=== PATIENT | male | born 1970 | race Caucasian/White ===

== ENCOUNTER 2017-07-03 08:15 | Inpatient (IN) | payer OTHER ==
[~2017-07-03 08:15] MED LIST: Lactated Ringers 1,000 ML IV SCH; Lidocaine 1%/Sod Bicarbonate in NS 8.4% 1 ML Syringe PRN; Sodium Chloride 0.9% 10 ML Syringe FLUSH PRN
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
[2017-07-03] MEDS ORDERED: Propofol 200 MG/20 ML SDV ONE (10:04)
[2017-07-03] MEDS ORDERED: Morphine PF 10 MG/10 ML SDV ONE (10:05)
[2017-07-03] MEDS ORDERED: Midazolam 1 MG/ML 2 ML SDV ONE (10:05)
[2017-07-03] MEDS ORDERED: fentaNYL 100 MCG/2 ML SDV ONE (10:05)
[2017-07-03] MEDS ORDERED: ceFAZolin 1 GM Vial ONE (10:11)
[2017-07-03] MEDS: Iodine/Sodium Iodide 2% Tincture 30 ML Bottle ONE ×2 (11:16→11:34)
[2017-07-03] MEDS: ceFAZolin 1 GM Vial ONE ×2 (11:16→11:39)
[2017-07-03] MEDS: Bupivacaine 0.25% 30 ML SDV ONE ×2 (11:17→11:44)
[2017-07-03] MEDS: Morphine 8 MG, EPINEPHrine 0.3 MG, Cefuroxime 750 MG, Ketorolac 30 MG, Sodium Chloride ... ONE ×15 (11:17→20:05)
[2017-07-03] MEDS: Vancomycin 1 GM SDV ONE ×2 (11:18→11:46)
[2017-07-03] MEDS ORDERED: Sennosides 8.6 MG Tab PO PRN (11:30)
[2017-07-03] MEDS ORDERED: Morphine 2 MG/ML Syringe IVPUSH PRN (11:30)
[2017-07-03] MEDS ORDERED: Bisacodyl 5 MG Tab PO PRN (11:30)
[2017-07-03] MEDS ORDERED: Ondansetron 4 MG/2 ML SDV IVPUSH PRN ×2 (11:30→11:59)
[2017-07-03] MEDS ORDERED: Naloxone 0.4 MG/ML SDV IVPUSH PRN (11:30)
[2017-07-03] MEDS ORDERED: Magnesium Hydroxide 400 MG/5 ML Susp 30 ML Cup PO PRN (11:30)
[2017-07-03] MEDS ORDERED: Lactated Ringers 1,000 ML ONE (11:39)
[2017-07-03] MEDS ORDERED: diphenhydrAMINE 50 MG/ML SDV IVPUSH PRN (11:59)
[2017-07-03] MEDS ORDERED: Meperidine PF 50 MG/ML Syringe IVPUSH PRN (11:59)
[2017-07-03] MEDS ORDERED: Ondansetron 4 MG/2 ML SDV ONE (12:08)
--- NOTE | 2017-07-03 12:32 | PCM.POSTAN ---
POST ANESTHESIA ASSESSMENT - MENTAL STATUS Mental Status: Alert, Oriented - VITAL SIGNS Pulse Rate: 76 SaO2: 96 Resp Rate: 11 Blood Pressure: 113/97 Temperature: 36.1 C - RESPIRATORY Respiratory Status: Respiratory Rate WNL, Airway Patent, O2 Saturation Stable, Supplemental Oxygen - CARDIOVASCULAR CV Status: Pulse Rate WNL, Blood Pressure Stable - GASTROINTESTINAL GI Status: No Symptoms - PAIN Pain Score: 0 - POST OP HYDRATION Hydration Status: Adequate & Stable
--- NOTE | 2017-07-03 13:32 | CR ---
Left knee: AP and lateral views of the left knee were obtained. Comparison:. Previous left knee exam of 12/08/09. Knee prosthesis is seen. Components are aligned. Underlying bony structures are intact. No fracture or other abnormality is seen. Impression: 1. Satisfactory radiographic appearance of recently placed left knee prosthesis. Diagnostic code #2
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
[2017-07-03] MEDS: Acetaminophen/oxyCODONE 325-5 MG Tab PO PRN ×2 (16:56→20:12)
[2017-07-03] MEDS: ceFAZolin 2 GM in Premix Bag 1 BAG IV SCH (18:35)
[2017-07-03] MEDS: Famotidine 20 MG Tab PO SCH (20:13)
[2017-07-03] MEDS ORDERED: Docusate Sodium 100 MG Cap PO PRN (21:00)
[2017-07-03] MEDS ORDERED: Simvastatin 10 MG Tab PO SCH (21:00)
[2017-07-04] MEDS: Cyclobenzaprine 10 MG Tab PO PRN ×2 (00:09→10:01)
[2017-07-04] MEDS: Acetaminophen/oxyCODONE 325-5 MG Tab PO PRN ×4 (00:10→13:05)
[2017-07-04] MEDS: ceFAZolin 2 GM in Premix Bag 1 BAG IV SCH ×2 (02:19→11:06)
[2017-07-04] MEDS ORDERED: Multivitamins,Therapeutic Tab PO SCH (07:00)
--- NOTE | 2017-07-04 08:04 | PCM.CONSN ---
- General Info Date of Service: 07/04/17 Admission Dx/Problem (Free Text): Admission Diagnosis/Problem Admission Diagnosis/Problem Osteoarthritis of knee POD #1 s/p Lt TKA with Dr. Ramirez Doing well, VSS, pain controlled, no nausea. Working with PT. Functional Status: Reports: Pain Controlled, Tolerating Diet, Ambulating, Urinating (ben miranda) - Review of Systems General: Reports: No Symptoms HEENT: Reports: No Symptoms Pulmonary: Reports: No Symptoms Cardiovascular: Reports: No Symptoms Gastrointestinal: Reports: No Symptoms Genitourinary: Reports: No Symptoms Musculoskeletal: Reports: Leg Pain Skin: Reports: No Symptoms Neurological: Reports: No Symptoms Psychiatric: Reports: No Symptoms - Patient Data Vitals - Most Recent: Last Vital Signs Temp 99.0 F 07/04/17 03:49 Pulse 76 07/04/17 03:49 Resp 16 07/04/17 06:58 BP 133/84 07/04/17 03:49 Pulse Ox 97 07/04/17 03:49 Weight - Most Recent: 211 lb I&O - Last 24 Hours: Intake & Output 07/03/17 07/04/17 07/04/17 22:59 06:59 14:59 Intake Total 400 1300 Output Total 50 800 Balance 350 500 Lab Results Last 24 Hours: Laboratory Results - last 24 hr 07/04/17 07/04/17 Range/Units 05:45 05:45 WBC 9.62 H (4.23-9.07) K/mm3 RBC 4.47 L (4.63-6.08) M/mm3 Hgb 13.0 L (13.7-17.5) gm/L Hct 38.5 L (40.1-51.0) % MCV 86.1 (79.0-92.2) fl MCH 29.1 (25.7-32.2) pg MCHC 33.8 (32.2-35.5) g/dl RDW Std Deviation 42.1 (35.1-43.9) fL Plt Count 188 (163-337) K/mm3 MPV 10.2 (9.4-12.3) fl Neut % (Auto) 77.4 H (34.0-67.9) % Lymph % (Auto) 12.8 L (21.8-53.1) % [place] % (Auto) 9.3 (5.3-12.2) % Eos % (Auto) 0.2 L (0.8-7.0) Baso % (Auto) 0.1 (0.1-1.2) % Neut # (Auto) 7.45 H (1.78-5.38) K/mm3 Lymph # (Auto) 1.23 L (1.32-3.57) K/mm3 [place] # (Auto) 0.89 H (0.30-0.82) K/mm3 Eos # (Auto) 0.02 L (0.04-0.54) K/mm3 Baso # (Auto) 0.01 (0.01-0.08) K/mm3 Sodium 137 (136-145) mEq/L Potassium 3.5 (3.5-5.1) mEq/L Chloride 101 (98-107) mEq/L Carbon Dioxide 26 (21-32) mEq/L Anion Gap 13.5 (5-15) BUN 11 (7-18) mg/dL Creatinine 0.9 (0.7-1.3) mg/dL Est Cr Clr Drug Dosing 96.91 mL/min Estimated GFR (MDRD) > 60 (>60) mL/min BUN/Creatinine Ratio 12.2 L (14-18) Glucose 129 H (74-106) mg/dL Calcium 8.7 (8.5-10.1) mg/dL Total Bilirubin 0.7 (0.2-1.0) mg/dL AST 20 (15-37) U/L ALT 25 (16-63) U/L Alkaline Phosphatase 83 (46-116) U/L Total Protein 6.4 (6.4-8.2) g/dl Albumin 3.4 (3.4-5.0) g/dl Globulin 3.0 gm/dL Albumin/Globulin Ratio 1.1 (1-2) Med Orders - Current: Current Medications Amlodipine Besylate (Norvasc) 5 mg PO DAILY CHACHA Aspirin (Ecotrin) 325 mg PO BID [facility]HA Bisacodyl (Dulcolax) 5 mg PO DAILY PRN PRN Reason: Constipation Cyclobenzaprine HCl (Flexeril) 10 mg PO TID PRN PRN Reason: Spasms Last Admin: 07/04/17 00:09 Dose: 10 mg Docusate Sodium (Colace) 100 mg PO BID PRN PRN Reason: Constipation Famotidine (Pepcid) 20 mg PO BID [facility] Last Admin: 07/03/17 20:13 Dose: 20 mg Cefazolin Sodium/Dextrose 2 gm (/ Premix) 50 mls @ 100 mls/hr IV Q8H [facility] Stop: 07/04/17 11:29 Last Admin: 07/04/17 02:19 Dose: 100 mls/hr Magnesium Hydroxide (Milk Of Magnesia) 30 ml PO BID PRN PRN Reason: Constipation Morphine Sulfate (Morphine) 2 mg IVPUSH Q2H PRN PRN Reason: Breakthrough Pain Multivitamins (Thera) 1 each PO WITHBREAKFAST [facility] Last Admin: 07/04/17 06:14 Dose: 1 each Ondansetron HCl (Zofran) 4 mg IVPUSH Q6H PRN PRN Reason: Nausea/Vomiting Oxycodone/Acetaminophen (Percocet 325-5 Mg) 1 - 2 tab PO Q4H PRN PRN Reason: Pain Last Admin: 07/04/17 04:59 Dose: 1 tab Senna (Senna) 8.6 mg PO BID PRN PRN Reason: Constipation Simvastatin (Zocor) 10 mg PO BEDTIME [facility] Last Admin: 07/03/17 20:13 Dose: 10 mg Discontinued Medications Bupivacaine HCl (Marcaine 0.25%) Confirm Administered Dose 30 ml .ROUTE .STK- MED ONE Stop: 07/03/17 09:38 Last Admin: 07/03/17 11:44 Dose: 30 ml Cefazolin Sodium (Ancef) Confirm Administered Dose 2 gm .ROUTE .STK-MED ONE Stop: 07/03/17 09:38 Last Admin: 07/03/17 11:39 Dose: 2 gm Cefazolin Sodium (Ancef) Confirm Administered Dose 2 gm .ROUTE .STK-MED ONE Stop: 07/03/17 10:12 Morphine Sulfate 8 mg/Epinephrine HCl 0.3 mg/Cefuroxime Sodium 750 mg/Ketorolac Tromethamine 30 mg/Sodium Chloride 27.9 ml 0 mg .XX ONETIME ONE Stop: 07/03/17 10:31 Last Admin: 07/03/17 20:05 Dose: Not Given Diphenhydramine HCl (Benadryl) 25 mg IVPUSH Q6H PRN PRN Reason: Pruritis Stop: 07/03/17 23:00 Fentanyl (Sublimaze) Confirm Administered Dose 100 mcg .ROUTE .STK-MED ONE Stop: 07/03/17 10:06 Lactated Ringer's (Ringers, Lactated) 1,000 mls @ 125 mls/hr IV ASDIRECTED CHACHA Stop: 07/03/17 23:00 Last Admin: 07/03/17 08:51 Dose: 125 mls/hr Lactated Ringer's (Ringers, Lactated) Confirm Administered Dose 1,000 mls @ as directed .ROUTE .STK-MED ONE Stop: 07/03/17 11:40 Iodine (Iodine 2% Mild Tincture) Confirm Administered Dose 30 ml .ROUTE .STK- MED ONE Stop: 07/03/17 09:38 Last Admin: 07/03/17 11:34 Dose: 18 ml Lidocaine/Sodium Bicarbonate (Buffered Lidocaine 1% In Ns 8.4%) 0.25 ml .XX ONETIME PRN PRN Reason: Prior to IV Start Stop: 07/03/17 13:00 Last Admin: 07/03/17 08:51 Dose: 0.25 ml Meperidine HCl (Demerol) 12.5 mg IVPUSH ONETIME PRN PRN Reason: Shivering Stop: 07/03/17 16:00 Midazolam HCl (Versed 1 Mg/Ml) Confirm Administered Dose 2 mg .ROUTE .STK-MED ONE Stop: 07/03/17 10:06 Morphine Sulfate (Duramorph Pf) Confirm Administered Dose 10 mg .ROUTE .STK-MED ONE Stop: 07/03/17 10:06 Naloxone HCl (Narcan) 0.1 mg IVPUSH Q5M PRN PRN Reason: Oversedation Stop: 07/03/17 11:46 Ondansetron HCl (Zofran) Confirm Administered Dose 4 mg .ROUTE .STK-MED ONE Stop: 07/03/17 12:09 Ondansetron HCl (Zofran) 4 mg IVPUSH ONETIME PRN PRN Reason: Nausea/Vomiting Stop: 07/03/17 23:00 Propofol (Diprivan 20 Ml) Confirm Administered Dose 600 mg .ROUTE .STK-MED ONE Stop: 07/03/17 10:05 Sodium Chloride (Saline Flush) 10 ml FLUSH ASDIRECTED PRN PRN Reason: Keep Vein Open Stop: 07/03/17 13:00 Tranexamic Acid (Cyklokapron) Confirm Administered Dose 1,000 mg .ROUTE .STK- MED ONE Stop: 07/03/17 09:37 Last Admin: 07/03/17 11:48 Dose: 1,000 mg Vancomycin HCl (Vancomycin) Confirm Administered Dose 1 gm .ROUTE .STK-MED ONE Stop: 07/03/17 09:37 Last Admin: 07/03/17 11:46 Dose: 1 gm - Exam Quality Assessment: DVT Prophylaxis General: Alert, Oriented, Cooperative, No Acute Distress HEENT: Pupils Equal, EOMI, Mucous Membr. Moist/[place] Neck: Supple Lungs: Clear to Auscultation, Normal Respiratory Effort Cardiovascular: Regular Rate, Regular Rhythm GI/Abdominal Exam: Normal Bowel Sounds, Soft, Non-Tender (Male) Exam: Deferred Extremities: Other (teds, SCD's, MYRA to lt knee) Peripheral Pulses: 2+: Dorsalis Pedis (L), Dorsalis Pedis (R) Wound/Incisions: Dressing Dry and Intact Neurological: No New Focal Deficit Psy/Mental Status: Alert, Normal Affect, Normal Mood Consult PN Assessment/Plan POD#: 1 Procedures: Procedures ASSAY OF PREALBUMIN (06/23/17) ASSAY OF SERUM ALBUMIN (06/23/17) ASSAY THYROID STIM HORMONE (01/19/16) CHEST X-RAY 2VW FRONTAL&LATL (06/23/17) COMPLETE CBC AUTOMATED (06/23/17) COMPREHEN METABOLIC PANEL (07/04/16) LIPID PANEL (01/27/17) MANUAL THERAPY 1/> REGIONS (08/07/15) METABOLIC PANEL TOTAL CA (06/23/17) PROTHROMBIN TIME (06/23/17) PT EVALUATION (07/13/15) ROUTINE VENIPUNCTURE (01/27/17) THERAPEUTIC EXERCISES (08/07/15) URINALYSIS AUTO W/SCOPE (07/04/16) (1) Osteoarthritis SNOMED Code(s): 911492010 Code(s): M19.90 - UNSPECIFIED OSTEOARTHRITIS, UNSPECIFIED SITE Priority: High Current Visit: Yes Qualifiers: Osteoarthritis location: knee Osteoarthritis type: primary Laterality: left Qualified Code(s): M17.12 - Unilateral primary osteoarthritis, left knee (2) S/P total knee arthroplasty SNOMED Code(s): 8999614245848, 616960923, 7533260209435 Code(s): Z96.659 - PRESENCE OF UNSPECIFIED ARTIFICIAL KNEE JOINT Priority: High Current Visit: Yes Qualifiers: Laterality: left Qualified Code(s): Z96.652 - Presence of left artificial knee joint (3) Cough SNOMED Code(s): 80842297 Code(s): R05 - COUGH Priority: Medium Current Visit: No (4) Dyslipidemia SNOMED Code(s): 951840089 Code(s): E78.5 - HYPERLIPIDEMIA, UNSPECIFIED Priority: Medium Current Visit: No (5) GERD (gastroesophageal reflux disease) SNOMED Code(s): 758056781 Code(s): K21.9 - GASTRO-ESOPHAGEAL REFLUX DISEASE WITHOUT ESOPHAGITIS Priority: Medium Current Visit: No (6) Hypertension SNOMED Code(s): 79746042 Code(s): I10 - ESSENTIAL (PRIMARY) HYPERTENSION Priority: Medium Current Visit: No Problem List Initiated/Reviewed/Updated: Yes My Orders Last 24 Hours: My Active Orders 07/04/17 07:00 Turn, Cough, Deep Breathe [RC] Q2HWA Plan: I/P - Status post left TKA with Dr. Ramirez, post operative day 1 Pain management, GI, and DVT prophylaxes per ortho. PT/OT IS/RT Hgb 13 - continue to follow post-operatively Chronic Problems: Continue home meds. HTN--stable Dyslipidema Cough GERD Arthritis Other: CM/SW Plans for DC home with family Full code status
[2017-07-04] MEDS: Famotidine 20 MG Tab PO SCH (08:38)
[2017-07-04] MEDS ORDERED: Aspirin 325 MG Tab.EC PO SCH (09:00)
[2017-07-04] MEDS ORDERED: amLODIPine 5 MG Tab PO SCH (09:00)
[2017-07-04 12:17] VITALS: BP 137/81
--- NOTE | 2017-07-07 10:32 | PCM.OPNOTE ---
- General Post-Op/Procedure Note Date of Surgery/Procedure: 07/03/17 Operative Procedure(s): left total knee arthroplasty Pre Op Diagnosis: left knee osteoarthrosis Post-Op Diagnosis: Same Anesthesia Technique: Local, MAC, Spinal Primary Surgeon: Yaniv Ramirez Anesthesia Provider: Fan Shahid Floral Arranger: Jessica Mcgarry Floral Arranger: Geeta Zhao EBPaola in mLs: 300 Complications: None Condition: Good
--- NOTE | 2017-07-07 11:15 | OR ---
DATE OF OPERATION: 07/03/2017 SURGEON: Yaniv Ramirez MD OPERATION PERFORMED: Left total knee arthroplasty. PREOPERATIVE DIAGNOSIS: Left knee osteoarthrosis. POSTOPERATIVE DIAGNOSIS: Left knee osteoarthrosis. ANESTHESIA: Local MAC with spinal. ANESTHESIA PROVIDER: Fan Shahid. ASSISTANTS: Jessica Mcgarry PA-C and Geeta Zhao LPN. ESTIMATED BLOOD LOSS: 300 mL. COMPLICATIONS: None. CONDITION: Stable. IMPLANTS: 1. [place] size 5 press-fit PS femur. 2. Priscilla size 4 press-fit universal tibial base plate. 3. Priscilla size 4.9 mm PS X3 polyethylene. 4. Priscilla 32 x 10 mm asymmetric press-fit patella. DESCRIPTION OF PROCEDURE: The patient was identified in the preop holding area. Proper site was marked and identified by the surgeon. The patient was taken back to the operative theater where after adequate anesthesia, the patient's left lower extremity had a nonsterile tourniquet applied and was then sterilely prepped and draped in the usual sterile fashion. OR time-out was performed. The patient received 2 g IV Ancef. Left lower extremity was then sterilely prepped and draped in the usual sterile fashion. OR timeout was performed. The patient received 2 g of IV Ancef. Left lower extremity was then exsanguinated. Tourniquet was insufflated to 250 mmHg. Standard medial parapatellar incision was made and medial parapatellar arthrotomy was created. Anterior fat pad was resected. Deep fibers of the MCL were raised. At this time attention was turned to the patella. Patella measured 26 and was resected to a 16 for a 32 x 10 mm patella. Drill hole was then drilled and found to be in adequate position. Attention was turned to the distal femur. Drill hole was placed in the intramedullary to the distal femur and intramedullary distal femoral cutting guide was then placed and an 8 mm was resected off the distal femur. It was found to be an adequate resection. Sizing guide was then placed. It was found to be a size 5 femur. Epicondylar axis holes were drilled using [place] line and epicondyles as reference. A 4 in 1 cutting block was then placed. Anterior, posterior and anterior and posterior chamfer cuts were then completed and found to be adequate. Box cut was then completed for a size 5 femur. Attention was turned to the tibia. Posterior, medial and lateral retractors were then placed and the extramedullary tibial cutting guide was then placed in the old footprint of the ACL. It was aligned with the 2nd ray. A 9 mm was then measured off the unaffected lateral side after a slope was set for roughly 0 degrees. At this time, tibial resection was then carried out and was found to be adequate. Posterior osteophytes along with the medial and lateral meniscus were then removed. Trial implants were then placed. The patient had full extension and flexion with patella tracking centrally and it was aligned to roughly neutral alignment. At this time, the tibial guide was then stamped and drilled in the proper rotation for the press-fit tibia. The press-fit tibia was then impacted into place and found to have adequate fixation. Press-fit femur was then impacted into place and had adequate fixation. The 9-mm PS X3 polyethylene was then placed and a 32 x 10 mm press-fit patella was press-fit into place. The patient's knee was then brought out full extension and flexion was found to have full flexion and extension. The patella was tracking centrally. A 1 L dilute Betadine solution was then irrigated through the knee along with 3 L of pulse lavage irrigation with Ancef. Periarticular injection was then completed. At this time #2 barbed suture was used for closure of the medial parapatellar arthrotomy. TXA was used topically, 2-0 Vicryl was used subcutaneously and a running Monocryl along with Prineo was used for the skin. The patient had a sterile soft dressing applied and was then sent to the PACU in stable condition. SUHAS /[id number]
--- NOTE | 2017-07-11 08:27 | PCM.SURGPN ---
- General Info Date of Service: 07/04/17 POD#: 1 Functional Status: Reports: Pain Controlled, Tolerating Diet, Ambulating, Urinating, Other (The pt feels prepared for discharge to home.) - Patient Data Vitals - Most Recent: Last Vital Signs Temp 98.2 F 07/04/17 11:53 Pulse 76 07/04/17 11:53 Resp 14 07/04/17 11:53 BP 137/81 07/04/17 11:53 Pulse Ox 96 07/04/17 11:53 Weight - Most Recent: 211 lb Med Orders - Current: Current Medications Discontinued Medications Amlodipine Besylate (Norvasc) 5 mg PO DAILY [facility] TO [facility] Last Admin: 07/04/17 08:38 Dose: 5 mg Aspirin (Ecotrin) 325 mg PO BID [facility] TO [facility] Last Admin: 07/04/17 08:38 Dose: 325 mg Bisacodyl (Dulcolax) 5 mg PO DAILY PRN PRN Reason: Constipation Bupivacaine HCl (Marcaine 0.25%) Confirm Administered Dose 30 ml .ROUTE .STK- MED ONE Stop: 07/03/17 09:38 Last Admin: 07/03/17 11:44 Dose: 30 ml Cefazolin Sodium (Ancef) Confirm Administered Dose 2 gm .ROUTE .STK-MED ONE Stop: 07/03/17 09:38 Last Admin: 07/03/17 11:39 Dose: 2 gm Cefazolin Sodium (Ancef) Confirm Administered Dose 2 gm .ROUTE .STK-MED ONE Stop: 07/03/17 10:12 Morphine Sulfate 8 mg/Epinephrine HCl 0.3 mg/Cefuroxime Sodium 750 mg/Ketorolac Tromethamine 30 mg/Sodium Chloride 27.9 ml 0 mg .XX ONETIME ONE Stop: 07/03/17 10:31 Last Admin: 07/03/17 20:05 Dose: Not Given Cyclobenzaprine HCl (Flexeril) 10 mg PO TID PRN PRN Reason: Spasms Last Admin: 07/04/17 10:01 Dose: 10 mg Diphenhydramine HCl (Benadryl) 25 mg IVPUSH Q6H PRN PRN Reason: Pruritis Stop: 07/03/17 23:00 Docusate Sodium (Colace) 100 mg PO BID PRN PRN Reason: Constipation Famotidine (Pepcid) 20 mg PO BID [facility] TO [facility] Last Admin: 07/04/17 08:38 Dose: 20 mg Fentanyl (Sublimaze) Confirm Administered Dose 100 mcg .ROUTE .STK-MED ONE Stop: 07/03/17 10:06 Lactated Ringer's (Ringers, Lactated) 1,000 mls @ 125 mls/hr IV ASDIRECTED [facility] TO [facility] Stop: 07/03/17 23:00 Last Admin: 07/03/17 08:51 Dose: 125 mls/hr Cefazolin Sodium/Dextrose 2 gm (/ Premix) 50 mls @ 100 mls/hr IV Q8H [facility] Stop: 07/04/17 11:29 Last Admin: 07/04/17 11:06 Dose: 100 mls/hr Lactated Ringer's (Ringers, Lactated) Confirm Administered Dose 1,000 mls @ as directed .ROUTE .STK-MED ONE Stop: 07/03/17 11:40 Iodine (Iodine 2% Mild Tincture) Confirm Administered Dose 30 ml .ROUTE .STK- MED ONE Stop: 07/03/17 09:38 Last Admin: 07/03/17 11:34 Dose: 18 ml Lidocaine/Sodium Bicarbonate (Buffered Lidocaine 1% In Ns 8.4%) 0.25 ml .XX ONETIME PRN PRN Reason: Prior to IV Start Stop: 07/03/17 13:00 Last Admin: 07/03/17 08:51 Dose: 0.25 ml Magnesium Hydroxide (Milk Of Magnesia) 30 ml PO BID PRN PRN Reason: Constipation Meperidine HCl (Demerol) 12.5 mg IVPUSH ONETIME PRN PRN Reason: Shivering Stop: 07/03/17 16:00 Midazolam HCl (Versed 1 Mg/Ml) Confirm Administered Dose 2 mg .ROUTE .STK-MED ONE Stop: 07/03/17 10:06 Morphine Sulfate (Morphine) 2 mg IVPUSH Q2H PRN PRN Reason: Breakthrough Pain Morphine Sulfate (Duramorph Pf) Confirm Administered Dose 10 mg .ROUTE .STK-MED ONE Stop: 07/03/17 10:06 Multivitamins (Thera) 1 each PO WITHBREAKFAST PENDING SALE TO [facility] Last Admin: 07/04/17 06:14 Dose: 1 each Naloxone HCl (Narcan) 0.1 mg IVPUSH Q5M PRN PRN Reason: Oversedation Stop: 07/03/17 11:46 Ondansetron HCl (Zofran) 4 mg IVPUSH Q6H PRN PRN Reason: Nausea/Vomiting Ondansetron HCl (Zofran) Confirm Administered Dose 4 mg .ROUTE .STK-MED ONE Stop: 07/03/17 12:09 Ondansetron HCl (Zofran) 4 mg IVPUSH ONETIME PRN PRN Reason: Nausea/Vomiting Stop: 07/03/17 23:00 Oxycodone/Acetaminophen (Percocet 325-5 Mg) 1 - 2 tab PO Q4H PRN PRN Reason: Pain Last Admin: 07/04/17 13:05 Dose: 2 tab Propofol (Diprivan 20 Ml) Confirm Administered Dose 600 mg .ROUTE .STK-MED ONE Stop: 07/03/17 10:05 Senna (Senna) 8.6 mg PO BID PRN PRN Reason: Constipation Simvastatin (Zocor) 10 mg PO BEDTIME [facility] Last Admin: 07/03/17 20:13 Dose: 10 mg Sodium Chloride (Saline Flush) 10 ml FLUSH ASDIRECTED PRN PRN Reason: Keep Vein Open Stop: 07/03/17 13:00 Tranexamic Acid (Cyklokapron) Confirm Administered Dose 1,000 mg .ROUTE .STK- MED ONE Stop: 07/03/17 09:37 Last Admin: 07/03/17 11:48 Dose: 1,000 mg Vancomycin HCl (Vancomycin) Confirm Administered Dose 1 gm .ROUTE .STK-MED ONE Stop: 07/03/17 09:37 Last Admin: 07/03/17 11:46 Dose: 1 gm - Exam Wound/Incisions: Dressing Dry and Intact General: Alert, Cooperative, No Acute Distress Lungs: Normal Respiratory Effort Extremities: Other (NVS intact for LLE. Alethea's sign negative.) - Problem List Review Problem List Initiated/Reviewed/Updated: Yes - Assessment Assessment (Free Text/Narrative):: POD#1 - left TKA - Plan Plan (Free Text/Narrative):: 1. Medical management per Hospitalist service. 2. Hgb 13.0 today. 3. Discharge to home. The pt will have the assistance of his . 4. 325mg ASA BID, frequent mobility, TEDs. The pt's case was discussed with Dr. Ramirez.
--- NOTE | 2017-07-11 08:29 | PCM.DCSUM1 ---
Discharge Summary - Hospital Course Brief History: Tyrel is a 47 yo male who underwent left TKA with Dr. Ramirez on . The procedure was completed under spinal anesthesia. The pt tolerated the procedure well and was admitted to the Medical-Surgical Unit. Medical management was provided by the Hospitalist service. The pt's Hospital course was uneventful. The pt's Hgb on POD#1 was 13.0. On POD#1, 325mg BID was initiated for VTE prophylaxis. SCDs and TEDs were also ordered. A Mepilex dressing was placed at the incision site at the time of surgery and remained clean and dry. The pt participated in P.T. and O.T. and progressed well. The pt was allowed to WBAT and used a FWW for mobility. On POD#1, the pt was deemed appropriate to discharge to home with his . - Discharge Data Discharge Date: 07/04/17 Discharge Disposition: Home, Self-Care 01 Condition: Good - Patient Summary/Data Operative Procedure(s) Performed: left total knee arthroplasty Consults: Consultations 07/03/17 09:14 Consult to Case Management [CONS] Routine Consult to Physician [CONS] Routine OT Evaluation and Treatment [CONS] Routine 07/03/17 09:35 PT Evaluation and Treatment [CONS] Routine - Patient Instructions Diet: Usual Diet as Tolerated Activity: Apply Ice, As Tolerated, Elevate Extremity, Full Weight Bearing Driving: Do Not Drive Showering/Bathing: May Shower Wound/Incision Care: Keep Operative Site/Wound Site Clean and Dry, Do NOT Change Dressing Notify Provider of: Fever, Increased Pain, Swelling and Redness, Drainage, Nausea and/or Vomiting Other/Special Instructions: Please get up and moving around every hour while awake. This helps to prevent blood clots. Please take 325mg aspirin twice daily - this also helps to prevent blood clots. The medication is being used for blood clot prevention and not for pain control, so please use the medication twice daily as directed. Please wear the MOHIT hose during the day and remove them at night. Please schedule for P.T. Complete the P.T. exercises and stretches that were instructed in the Hospital. Please use the pain medication and muscle relaxant as needed. The medication may cause drowsiness and/or constipation. You could use a stool softener like docusate sodium or Colace 100mg twice daily and/or a laxative like Miralax daily for constipation. Contact your primary care provider for further instructions if you are constipated. Please schedule an appointment with your primary care provider for 'routine post-op care'. Use the incentive spirometer often. Please place ice to the knee often. Please elevate the limb to decrease swelling. Keep the Mepilex dressing in place until follow-up. Please call [phone] with questions or concerns. - Discharge Plan Prescriptions/Med Rec: oxyCODONE HCl/Acetaminophen [Percocet 5-325 mg Tablet] 1 - 2 each PO Q6HR PRN # 60 tablet PRN Reason: Pain Aspirin [Ecotrin] 325 mg PO BID #84 tab.ec Cyclobenzaprine [Flexeril] 10 mg PO TID PRN #40 tablet PRN Reason: Muscle Spasm Home Medications: Home Meds Esomeprazole Magnesium [Nexium] 20 mg PO DAILY 06/30/17 [History] Pediatric Multivitamin Comb#30 [Gummies Children Multivitamin] 2 tab PO DAILY [History] Simvastatin 10 mg PO BEDTIME 06/30/17 [History] amLODIPine [Norvasc] 5 mg PO DAILY 06/30/17 [History] Aspirin [Ecotrin] 325 mg PO BID #84 tab.ec 07/04/17 [Rx] Cyclobenzaprine [Flexeril] 10 mg PO TID PRN #40 tablet 07/04/17 [Rx] oxyCODONE HCl/Acetaminophen [Percocet 5-325 mg Tablet] 1 - 2 each PO Q6HR PRN # 60 tablet 07/04/17 [Rx] Patient Handouts: Smoking Cessation, Tips for Success, [id number], Smoking Hazards, Total Knee Replacement, Care After, [id number], Total Knee Replacement, [id number], Smokeless Tobacco Use, Aspirin, ASA oral tablets, Knee Rehabilitation Guidelines Following Surgery Referrals: Jessica Mcgarry PA-C [Physician Catheterization Laboratory Technician] - 07/11/17 9:30 am (Please follow up with Jessica Mcgarry on 2016 at 0930.) Maddy Whitt PA-C [Primary Care Provider] - 07/11/17 9:00 am (Please follow up with Maddy Whitt on at 0900. ) - Patient Data Vitals - Most Recent: Last Vital Signs Temp 98.2 F 07/04/17 11:53 Pulse 76 07/04/17 11:53 Resp 14 07/04/17 11:53 BP 137/81 07/04/17 11:53 Pulse Ox 96 07/04/17 11:53 Weight - Most Recent: 211 lb Med Orders - Current: Current Medications Discontinued Medications Amlodipine Besylate (Norvasc) 5 mg PO DAILY [facility] Last Admin: 07/04/17 08:38 Dose: 5 mg Aspirin (Ecotrin) 325 mg PO BID [facility] Last Admin: 07/04/17 08:38 Dose: 325 mg Bisacodyl (Dulcolax) 5 mg PO DAILY PRN PRN Reason: Constipation Bupivacaine HCl (Marcaine 0.25%) Confirm Administered Dose 30 ml .ROUTE .STK- MED ONE Stop: 07/03/17 09:38 Last Admin: 07/03/17 11:44 Dose: 30 ml Cefazolin Sodium (Ancef) Confirm Administered Dose 2 gm .ROUTE .STK-MED ONE Stop: 07/03/17 09:38 Last Admin: 07/03/17 11:39 Dose: 2 gm Cefazolin Sodium (Ancef) Confirm Administered Dose 2 gm .ROUTE .STK-MED ONE Stop: 07/03/17 10:12 Morphine Sulfate 8 mg/Epinephrine HCl 0.3 mg/Cefuroxime Sodium 750 mg/Ketorolac Tromethamine 30 mg/Sodium Chloride 27.9 ml 0 mg .XX ONETIME ONE Stop: 07/03/17 10:31 Last Admin: 07/03/17 20:05 Dose: Not Given Cyclobenzaprine HCl (Flexeril) 10 mg PO TID PRN PRN Reason: Spasms Last Admin: 07/04/17 10:01 Dose: 10 mg Diphenhydramine HCl (Benadryl) 25 mg IVPUSH Q6H PRN PRN Reason: Pruritis Stop: 07/03/17 23:00 Docusate Sodium (Colace) 100 mg PO BID PRN PRN Reason: Constipation Famotidine (Pepcid) 20 mg PO BID [facility] Last Admin: 07/04/17 08:38 Dose: 20 mg Fentanyl (Sublimaze) Confirm Administered Dose 100 mcg .ROUTE .STK-MED ONE Stop: 07/03/17 10:06 Lactated Ringer's (Ringers, Lactated) 1,000 mls @ 125 mls/hr IV ASDIRECTED [facility] Stop: 07/03/17 23:00 Last Admin: 07/03/17 08:51 Dose: 125 mls/hr Cefazolin Sodium/Dextrose 2 gm (/ Premix) 50 mls @ 100 mls/hr IV Q8H [facility] Stop: 07/04/17 11:29 Last Admin: 07/04/17 11:06 Dose: 100 mls/hr Lactated Ringer's (Ringers, Lactated) Confirm Administered Dose 1,000 mls @ as directed .ROUTE .STK-MED ONE Stop: 07/03/17 11:40 Iodine (Iodine 2% Mild Tincture) Confirm Administered Dose 30 ml .ROUTE .STK- MED ONE Stop: 07/03/17 09:38 Last Admin: 07/03/17 11:34 Dose: 18 ml Lidocaine/Sodium Bicarbonate (Buffered Lidocaine 1% In Ns 8.4%) 0.25 ml .XX ONETIME PRN PRN Reason: Prior to IV Start Stop: 07/03/17 13:00 Last Admin: 07/03/17 08:51 Dose: 0.25 ml Magnesium Hydroxide (Milk Of Magnesia) 30 ml PO BID PRN PRN Reason: Constipation Meperidine HCl (Demerol) 12.5 mg IVPUSH ONETIME PRN PRN Reason: Shivering Stop: 07/03/17 16:00 Midazolam HCl (Versed 1 Mg/Ml) Confirm Administered Dose 2 mg .ROUTE .STK-MED ONE Stop: 07/03/17 10:06 Morphine Sulfate (Morphine) 2 mg IVPUSH Q2H PRN PRN Reason: Breakthrough Pain Morphine Sulfate (Duramorph Pf) Confirm Administered Dose 10 mg .ROUTE .STK-MED ONE Stop: 07/03/17 10:06 Multivitamins (Thera) 1 each PO WITHBREAKFAST [facility] Last Admin: 07/04/17 06:14 Dose: 1 each Naloxone HCl (Narcan) 0.1 mg IVPUSH Q5M PRN PRN Reason: Oversedation Stop: 07/03/17 11:46 Ondansetron HCl (Zofran) 4 mg IVPUSH Q6H PRN PRN Reason: Nausea/Vomiting Ondansetron HCl (Zofran) Confirm Administered Dose 4 mg .ROUTE .STK-MED ONE Stop: 07/03/17 12:09 Ondansetron HCl (Zofran) 4 mg IVPUSH ONETIME PRN PRN Reason: Nausea/Vomiting Stop: 07/03/17 23:00 Oxycodone/Acetaminophen (Percocet 325-5 Mg) 1 - 2 tab PO Q4H PRN PRN Reason: Pain Last Admin: 07/04/17 13:05 Dose: 2 tab Propofol (Diprivan 20 Ml) Confirm Administered Dose 600 mg .ROUTE .STK-MED ONE Stop: 07/03/17 10:05 Senna (Senna) 8.6 mg PO BID PRN PRN Reason: Constipation Simvastatin (Zocor) 10 mg PO BEDTIME [facility] Last Admin: 07/03/17 20:13 Dose: 10 mg Sodium Chloride (Saline Flush) 10 ml FLUSH ASDIRECTED PRN PRN Reason: Keep Vein Open Stop: 07/03/17 13:00 Tranexamic Acid (Cyklokapron) Confirm Administered Dose 1,000 mg .ROUTE .STK- MED ONE Stop: 07/03/17 09:37 Last Admin: 07/03/17 11:48 Dose: 1,000 mg Vancomycin HCl (Vancomycin) Confirm Administered Dose 1 gm .ROUTE .STK-MED ONE Stop: 07/03/17 09:37 Last Admin: 07/03/17 11:46 Dose: 1 gm *Q Meaningful Use (DIS) - VTE *Q VTE Criteria *Q: - Stroke *Q Stroke Criteria *Q: - AMI *Q AMI Criteria *Q:
== END 2017-07-04 15:35 | disposition home or self-care (01) | DRG 470 ==
LOC: JD.MS 08:15
PROVIDERS: ADMIT Orthopaedic Surgery; ATTEND Orthopaedic Surgery
PROC: 0SRD0JA Replacement of Left Knee Joint with Synthetic Substitute, Uncemented, Open Approach (ICD-10-PCS; principal; 2017-07-03)
DX: M17.12 Unilateral primary osteoarthritis, left knee (principal); I10 Essential (primary) hypertension; E78.5 Hyperlipidemia, unspecified; R05 Cough; K21.9 Gastro-esophageal reflux disease without esophagitis; E66.9 Obesity, unspecified; Z68.33 Body mass index [BMI] 33.0-33.9, adult; Z87.891 Personal history of nicotine dependence; Z79.82 Long term (current) use of aspirin; Z79.899 Other long term (current) drug therapy
CPT/HCPCS: 01402; 36415; 73560-26-LT; 73560-LT; 80053; 85025; 87641; 94762; 97110-GP; 97116-GP; 97162-GP; 97165-GO; 97535-GO; A9270-GY; C1776; J0171; J0690; J0697; J1885; J2250; J2270; J2405; J2704; J3010; J3370; J3490; J7120

== ENCOUNTER 2017-08-12 09:01 | Emergency (ER) | payer OTHER ==
[2017-08-12 09:18] VITALS: BP 159/89
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
== END 2017-08-12 11:21 | disposition home or self-care (01) ==
LOC: JD.ED 09:01
DX: F81.0 Specific reading disorder (principal); T40.4X5A Adverse effect of other synthetic narcotics, initial encounter; I10 Essential (primary) hypertension; K21.9 Gastro-esophageal reflux disease without esophagitis; E66.9 Obesity, unspecified; H53.8 Other visual disturbances; Z79.82 Long term (current) use of aspirin; Z68.30 Body mass index [BMI] 30.0-30.9, adult; Z79.899 Other long term (current) drug therapy
CPT/HCPCS: 36415; 80053; 85025; 99282; 99284

== ENCOUNTER 2018-01-19 02:59 | Emergency (ER) | payer OTHER ==
[2018-01-19 03:05] VITALS: BP 165/106
[2018-01-19] MEDS ORDERED: Sodium Chloride 0.9% 10 ML Syringe FLUSH PRN (03:14)
[2018-01-19] MEDS ORDERED: Sodium Chloride 0.9% 1,000 ML IV STA (03:14)
[2018-01-19] MEDS ORDERED: Ondansetron 4 MG/2 ML SDV IVPUSH ONE (03:15)
[2018-01-19] MEDS ORDERED: fentaNYL 100 MCG/2 ML SDV IVPUSH ONE (03:16)
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
--- NOTE | 2018-01-19 06:51 | US ---
Limited abdominal ultrasound: Multiple real-time images of the upper right abdomen were obtained. Comparison: No prior abdominal imaging. Liver shows no focal abnormality. Minimal sludge is seen within the gallbladder. Gallbladder shows no gallstones. No gallbladder wall thickening or biliary duct dilatation is seen. Right kidney shows no hydronephrosis or mass. Normal hepatopedal flow is seen within the portal vein. Impression: 1. Minimal sludge within the gallbladder. 2. Right upper quadrant abdominal ultrasound is otherwise unremarkable. Diagnostic code #2 I agree with preliminary report issued by [facility] ([facility] preliminary report dictated on 01/19/18, 5:25 AM Central Time)
== END 2018-01-19 05:08 | disposition home or self-care (01) ==
LOC: JD.ED 02:59
DX: K80.50 Calculus of bile duct without cholangitis or cholecystitis without obstruction (principal); I10 Essential (primary) hypertension; E78.5 Hyperlipidemia, unspecified; Z87.891 Personal history of nicotine dependence; Z79.899 Other long term (current) drug therapy
CPT/HCPCS: 36415; 76705; 80053; 83690; 85025; 96361; 96374; 96375; 99284; J2405; J3010; J7040; J7050

== ENCOUNTER 2022-06-16 08:40 | Day surgery (SDC) | payer OTHER ==
[~2022-06-16 08:40] MED LIST changes: +Lidocaine 1% 4 ML ONE; +Lidocaine 1%/Sod Bicarbonate in NS 8.4% 1 ML Syringe IDERM PRN; -Lidocaine 1%/Sod Bicarbonate in NS 8.4% 1 ML Syringe PRN; +Propofol 200 MG/20 ML SDV ONE; +Sodium Chloride 0.9% 10 ML Syringe FLUSH SCH
[2022-06-16] MEDS ORDERED: Propofol 200 MG/20 ML SDV ONE ×2 (11:52→12:16)
[2022-06-16] MEDS ORDERED: Ketamine 500 mg/10 ML MDV ONE (12:03)
[2022-06-16 15:50] VITALS: BP 150/85; PULSE 66
== END 2022-06-16 14:04 | disposition home or self-care (01) ==
LOC: JD.SDS 08:40
PROVIDERS: ATTEND Surgery
DX: Z12.11 Encounter for screening for malignant neoplasm of colon (principal); D12.2 Benign neoplasm of ascending colon; K62.1 Rectal polyp; I10 Essential (primary) hypertension; K21.9 Gastro-esophageal reflux disease without esophagitis; E78.2 Mixed hyperlipidemia; G47.33 Obstructive sleep apnea (adult) (pediatric); E55.9 Vitamin D deficiency, unspecified; E66.9 Obesity, unspecified; Z88.5 Allergy status to narcotic agent; Z79.899 Other long term (current) drug therapy; Z80.0 Family history of malignant neoplasm of digestive organs; Z98.890 Other specified postprocedural states; Z87.891 Personal history of nicotine dependence; Z68.36 Body mass index [BMI] 36.0-36.9, adult
CPT/HCPCS: 45380; J2704; J3490; J7120

== ENCOUNTER 2023-07-05 08:34 | Day surgery (SDC) | payer BC ==
[~2023-07-05 08:34] MED LIST changes: +Acetaminophen 325 MG Tab PO SCH; +EPINEPHrine 1 MG/ML SDV ONE; +Ketorolac 30 MG/ML SDV ONE; +Lactated Ringers 1,000 ML ONE; -Lidocaine 1% 4 ML ONE; +Lidocaine 1% 5 ML VIAL ONE; -Lidocaine 1%/Sod Bicarbonate in NS 8.4% 1 ML Syringe IDERM PRN; +Midazolam 1 MG/ML 2 ML SDV ONE; +Pregabalin 25 MG Cap PO SCH; +Ropivacaine 0.5% 5 MG/ML 30 ML SDV ONE; +ceFAZolin 2 GM Vial ONE; +fentaNYL 100 MCG/2 ML SDV ONE; +oxyCODONE ER 10 MG TAB.ER PO SCH
[2023-07-05] MEDS ORDERED: Dexamethasone 4 MG/ML 5 ML MDV ONE (10:46)
[2023-07-05] MEDS ORDERED: Dexmedetomidine 200 MCG/2 ML SDV ONE (10:50)
[2023-07-05] MEDS ORDERED: Ondansetron 4 MG/2 ML SDV ONE (10:51)
[2023-07-05] MEDS ORDERED: Ketorolac 30 MG/ML SDV ONE (10:51)
[2023-07-05] MEDS ORDERED: Ondansetron 4 MG/2 ML SDV IVPUSH PRN (11:01)
[2023-07-05] MEDS ORDERED: HYDROmorphone 0.5 MG/0.5 ML Syringe IVPUSH PRN (11:01)
[2023-07-05] MEDS ORDERED: fentaNYL 100 MCG/2 ML SDV IVPUSH PRN (11:01)
[2023-07-05] MEDS ORDERED: Phenylephrine 1% 10 MG/ML SDV ONE (11:18)
[2023-07-05] MEDS: Morphine 8 MG, EPINEPHrine 0.3 MG, Cefuroxime 750 MG, Ketorolac 30 MG, Sodium Chloride ... PRN ×10 (11:25→11:36)
[2023-07-05] MEDS: Tranexamic Acid 1,000 MG/10 ML Vial ONE ×2 (11:25→11:44)
[2023-07-05] MEDS: Vancomycin 1 GM SDV ONE ×2 (11:26→11:44)
[2023-07-05] MEDS ORDERED: Propofol 200 MG/20 ML SDV ONE (11:28)
[2023-07-05 17:05] VITALS: BP 126/77; PULSE 88
== END 2023-07-05 15:30 | disposition home or self-care (01) ==
LOC: JD.SDS 08:34
PROVIDERS: ATTEND Orthopaedic Surgery
DX: M17.11 Unilateral primary osteoarthritis, right knee (principal); G89.29 Other chronic pain; K21.9 Gastro-esophageal reflux disease without esophagitis; I10 Essential (primary) hypertension; E78.2 Mixed hyperlipidemia; G47.33 Obstructive sleep apnea (adult) (pediatric); E55.9 Vitamin D deficiency, unspecified; Z88.5 Allergy status to narcotic agent; Z79.899 Other long term (current) drug therapy; Z79.1 Long term (current) use of non-steroidal anti-inflammatories (NSAID); Z87.891 Personal history of nicotine dependence
CPT/HCPCS: 0055T; 27447; 64447; 73560; 97110; 97116; 97161; C1713; C1776; J0171; J0690; J0697; J1100; J1885; J2250; J2270; J2370; J2405; J2704; J2795; J3010; J3370; J7030; J7120; 01402; J3490